=== PATIENT | male | born 1975 | race Caucasian/White ===

== ENCOUNTER 2020-05-30 14:11 | Outpatient (CLI) | payer BC ==
--- NOTE | 2020-05-30 14:40 | RAD ---
LEFT WRIST 3 VIEWS: HISTORY: Left wrist pain, injury FINDINGS: No acute fracture or dislocation is identified. If symptoms do not improve, a follow-up exam should be obtained in 7-10 days.
--- NOTE | 2020-05-30 14:41 | RAD ---
XR Finger(s) Lt Min 2 View History: Pain in fingers Comparison: None. Findings: Concerning for small osseous avulsion along the medial aspect of the ring finger proximal i nterphalangeal joint. No subluxation. Impression: Concern for ligamentous injury and osseous avulsion along the medial aspect ring finger p roximal interphalangeal joint.
== END 2020-05-30 14:12 | disposition home or self-care (01) ==
LOC: BICRAD 14:11
PROVIDERS: ATTEND Specialist
DX: M25.532 Pain in left wrist (principal); M79.645 Pain in left finger(s)